=== PATIENT | male | born 1965 | race Caucasian/White ===

== ENCOUNTER 2021-01-02 03:17 | Emergency (ER) | payer OTHER, SELFPAY ==
[2021-01-02 03:32] VITALS: BP 152/89; PULSE 87; RESP 17; TEMP 36.5; O2SAT 99; BMI 28.1
[2021-01-02] MEDS: LORazepam 0.5 MG TABLET 1 MG PO (03:38)
[2021-01-02] MEDS: IBUPROFEN 400 MG TABLET PO (03:38)
[2021-01-02] MEDS: AMOXICILLIN/CLAV 875/125 MG 1 TAB PO (03:38)
[2021-01-02] MEDS: ACETAMINOPHEN 325 MG TABLET PO (03:38)
[2021-01-02] MEDS: TET,DIPH,PERTUSS(ACELL),VAC/PF 0.5 ML SYRINGE IM (03:39)
[2021-01-02] MEDS: LIDO 1%/SOD BICARB 8.4% (10ML) 10 ML SYRINGE INJ (03:41)
--- NOTE | 2021-01-02 03:41 | ED_ITS ---
HPI - Animal Bite General Chief Complaint: Animal Bite Stated Complaint: dog bite on left arm Time Seen by Provider: 01/02/21 03:26 Source: patient Mode of arrival: Ambulatory Limitations: no limitations History of Present Illness HPI narrative: 55-year-old gentleman with no significant medical history was playing with his dog on their couch, went to move and the dog ended up biting his left forearm. There is a large full-thickness laceration me upper forearm but does not appear to include tendons. The superficial muscle and fascia sheath does appear to be disrupted. Bleeding is controlled. Related Data Previous Rx's Medication Instructions Recorded amoxicillin 875 mg-potassium 1 tab PO BID #20 tab 01/02/21 clavulanate 125 mg tablet (Augmentin) Allergies Allergy/AdvReac Type Severity Reaction Status Date / Time No Known Drug Allergies Allergy Verified 01/02/21 03:38 Review of Systems Review of Systems Narrative: Pertinent positive and negative findings as per HPI Remainder of review of systems is otherwise unremarkable for Constitutional: Fevers, chills, weakness ENT: No sore throat, neck pain, ear pain CV: Chest pain, palpitations, Respiratory: Cough, wheeze, dyspnea GI: Nausea, vomiting, diarrhea, Patient History Social History Smoking Status: Never smoker Smoking Status: Never smoker alcohol intake frequency: holidays/special occasions only Substance Use Type: does not use Exam Narrative Exam Narrative: General: Alert appropriate in no acute distress Respiratory: Able to speak in full sentences, no obvious respiratory distress Skin: No obvious rashes, warm and dry Neurologic: Grossly intact no obvious asymmetries or abnormalities Psych: appropriate insight and affect, cooperative Extremity: Left forearm 8cm full thickness laceration on the dorsal surface of the proximal forearm. There are 2 accompanying puncture wounds from the dogs inferior canines on the undersurface of the arm. One is approximately a cm the other is 1.5 cm. Neurovascularly intact distally Initial Vital Signs Initial Vital Signs: Vital Signs Temperature 97.7 F 01/02/21 03:32 Pulse Rate 87 01/02/21 03:32 Respiratory Rate 17 01/02/21 03:32 Blood Pressure 152/89 H 01/02/21 03:32 Pulse Oximetry 99 01/02/21 03:32 Procedures Laceration Repair Left forearm: Time of procedure: 04:20 Site: lower extremity (8 cm full-thickness dorsal forearm, 1 cm puncture and 1.5 cm puncture wound on the opposing surface) Side (If applicable): left Size (cm): 10.5 Description: irregular, contaminated and other (Inferior wounds are puncture wounds with tearing) Depth: involves muscle layer Local Anesthetic: lidocaine 1% and with bicarb Amount of anesthesia used (mL): 8 Pre-repair: wound explored, irrigated extensively and deep structures intact (Inferior puncture wounds are into fat but not to fascia. The larger dorsal wound goes completely through epidermis and dermis to fascial surface of muscle. There is mild disruption of fascia over the muscle but not significant muscle belly disruption. No tendon disruption.) Skin layer closed with: nylon Size (cm): 3-0 Number of sutures: 10 Technique: simple, interrupted Subcutaneous layer closed with: vicryl Size: 3-0 Number of sutures: 4 Technique: other (Horizontal mattress) Course Orders Ordered: Discontinued Medications Acetaminophen (Acetaminophen 325 Mg Tablet) 325 mg PO NOW ONE Stop: 01/02/21 03:32 Last Admin: 01/02/21 03:38 Dose: 325 mg Documented by: Amoxicillin/Clavulanate Potassium (Amoxicillin/Clav 875/125 Mg) 1 tab PO NOW ONE Stop: 01/02/21 03:32 Last Admin: 01/02/21 03:38 Dose: 1 tab Documented by: Bacitracin (Bacitracin Oint 0.9 Gm Pckt) 2 applic TOP NOW ONE Stop: 01/02/21 03:46 Last Admin: 01/02/21 03:50 Dose: 2 applic Documented by: Diphtheria/Tetanus/Acell Pertussis (Tet,Diph,Pertuss(Acell),Vac/Pf 0.5 Ml Syringe) 0.5 ml IM .ONCE ONE Stop: 01/02/21 03:32 Last Admin: 01/02/21 03:39 Dose: 0.5 ml Documented by: Ibuprofen (Ibuprofen 400 Mg Tablet) 400 mg PO NOW ONE Stop: 01/02/21 03:32 Last Admin: 01/02/21 03:38 Dose: 400 mg Documented by: Lidocaine HCl (Lidocaine 1% 20 Ml) 10 ml INJ NOW ONE Stop: 01/02/21 03:32 Last Admin: 01/02/21 03:50 Dose: Not Given Documented by: Lidocaine/Sodium Bicarbonate (Lido 1%/Sod Bicarb 8.4% (10ml) 10 Ml Syringe) 10 ml INJ NOW ONE Stop: 01/02/21 03:32 Last Admin: 01/02/21 03:41 Dose: 10 ml Documented by: Lorazepam (Lorazepam 0.5 Mg Tablet) 1 mg PO NOW ONE Stop: 01/02/21 03:32 Last Admin: 01/02/21 03:38 Dose: 1 mg Documented by: Vital Signs Vital signs: Vital Signs - 8 hr 01/02/21 03:32 01/02/21 03:47 Temperature 97.7 F Pulse Rate 87 88 Respiratory Rate 17 22 Blood Pressure 152/89 H 152/89 H Pulse Oximetry 99 96 MDM - Animal Bite MDM Narrative Medical decision making narrative: 55-year-old gentleman who was trying to push his dog off the couch and the dog bit his arm leaving 2 puncture wounds on the ventral surface and an 8 cm laceration into the muscle on the dorsal surface. All wounds were extensively irrigated. Each of the 1 cm and 1.5 cm puncture wounds were closed with a single interrupted stitch leaving wound for drainage if required. The larger wound was heavily irrigated and fully explored. The fascial sheath over the muscle belly was disrupted but minimal damage to the muscle itself. Subcutaneous layer was closed with 3-0 Vicryl and 3-0 nylon used to reapproximate skin edges. Because this is a dog bite, he started on Augmentin in the emergency department will have him complete 10 days. His the wounds are so large I am going to recommend 10 days before sutures come out. We clearly reviewed signs and symptoms of deep wound infections and reasons to return to the emergency department with any complications. Questions are answered and patient is safe for home discharge Discharge Plan Departure Patient Disposition: Home Clinical Impression: Bite by animal, Laceration Instructions: DI for Laceration Repair -- Complex, DI for Dog Bite Activity Restrictions/Additional Instructions: Thank you for coming in today. I am sorry you ran into this issue with your dog . You were given a tetanus shot and her 1st dose of Augmentin, antibiotic we commonly use for dog bites. You will need to complete a total of 10 days of Augmentin to prevent infection. If you do notice signs or symptoms of infection in the wounds you do need to return for further evaluation The smaller puncture wounds each have 1 superficial stitch to allow any drainage if needed. The larger wound has a deep repair and the multiple superficial stitches will need to be removed. All stitches should come out on or about January 12. If you have new or worsening symptoms please feel free to return to the ER Prescriptions: New amoxicillin-pot clavulanate [Augmentin] 875-125 mg tablet 1 tab PO BID Qty: 20 0RF
[2021-01-02 03:47] VITALS: BP 152/89; PULSE 88; RESP 22; O2SAT 96
[2021-01-02] MEDS: BACITRACIN OINT 0.9 GM PCKT 2 APPLIC TOP (03:50)
[2021-01-02 04:39] VITALS: BP 112/80; PULSE 62; RESP 18; TEMP 36.6; O2SAT 98
== END 2021-01-02 04:40 | disposition home or self-care (01) ==
PROVIDERS: Emergency Provider Emergency Medicine
DX: S51.812A Laceration without foreign body of left forearm, initial encounter (principal); W54.0XXA Bitten by dog, initial encounter; Y92.009 Unspecified place in unspecified non-institutional (private) residence as the place of occurrence of the external cause; Z23 Encounter for immunization
CPT/HCPCS: 12034; 90471; 99283; 99284; 90715